=== PATIENT | female | born 1990 | race American Indian/Alaskan Native ===

== ENCOUNTER 2017-05-07 21:27 | Emergency (ER) | payer SELFPAY ==
[2017-05-07 21:59] VITALS: BP 120/57
== END 2017-05-08 02:15 | disposition left against medical advice (07) ==
LOC: ED 21:27
DX: Z53.21 Procedure and treatment not carried out due to patient leaving prior to being seen by health care provider (principal)

== ENCOUNTER 2017-05-24 15:00 | Emergency (ER) | payer MEDICAID ==
[2017-05-24 15:28] VITALS: BP 117/78
== END 2017-05-25 01:47 | disposition left against medical advice (07) ==
LOC: ED 15:00
DX: R06.2 Wheezing (principal); Z53.21 Procedure and treatment not carried out due to patient leaving prior to being seen by health care provider

== ENCOUNTER 2017-05-30 21:18 | Emergency (ER) | payer MEDICAID ==
[2017-05-30 23:43] VITALS: BP 131/50
== END 2017-05-30 23:52 | disposition left against medical advice (07) ==
LOC: ED 21:18
DX: R07.9 Chest pain, unspecified (principal); Z53.21 Procedure and treatment not carried out due to patient leaving prior to being seen by health care provider
CPT/HCPCS: 93005